=== PATIENT | male | born 1960 | race Caucasian/White ===

== ENCOUNTER 2020-11-06 06:42 | Emergency (ER) | payer OTHER ==
[~2020-11-06] VITALS: Ht 185.4 cm; Wt 106.0 kg
[2020-11-06 06:55] VITALS: BP 143/91
--- NOTE | 2020-11-06 07:23 | PHYS DOC ---
Adult General Chief Complaint Chief Complaint: HAND PROBLEM HPI HPI Patient is a 60-year-old male presenting for right hand infection. This was first noticed 4 days ago, has history of staph infections of skin and reports similar findings on lateral portion of his right fifth knuckle. Patient was able to pop and drain this but states it worsened with development of edema in his hand which concerned him prompting him to visit local urgent care yesterday. Patient has remained afebrile, presented for examination and was subsequently discharged home with new prescription for doxycycline. He has taken x2 doses prior to ER visit today and is concerned due to discussed return precautions that stated if his hand does not get better he will need IV antibiotics. He is here today for evaluation. As mention, he has been afebrile, no other signs or symptoms of systemic disease, no crepitus or streaking up arm, patient does report subjective increase in right hand edema but states his lesion on right lateral hand has been actively draining Review of Systems Review of Systems Fourteen body systems of review of systems have been reviewed. See HPI for pertinent positives and negative responses, other vigil all other systems are negative, non-pertinent or non-contributory Allergies Allergies Allergies Coded Allergies Type Severity Reaction Last Updated Verified No Known Drug Allergies 11/06/20 No Physical Exam Physical Exam Constitutional: Well developed, well nourished, no acute distress, non-toxic appearance. HENT: Normocephalic, atraumatic, bilateral external ears normal, oropharynx moist, no oral exudates, nose normal. Eyes: PERRLA, EOMI, conjunctiva normal, no discharge. Neck: Normal range of motion, no tenderness, supple, no stridor. Cardiovascular: Heart rate regular, sinus rhythm, no murmurs rubs or gallops Lungs & Thorax: Bilateral breath sounds clear to auscultation Abdomen: Bowel sounds normal, soft, no tenderness, no masses, no pulsatile masses. Nonsurgical abdomen, no peritoneal signs Skin: Warm, dry, no erythema, no rash. There is an abscess that is actively draining on the lateral portion of fifth knuckle on dorsal surface, total diameter 2 cm with 4 mm central ulceration that is actively draining purulent malodorous exudate without streaking, crepitus or lymphangitis Back: No tenderness, no CVA tenderness. Extremities: No tenderness, no cyanosis, no clubbing, ROM intact, no edema. Neurologic: Alert and oriented X 3, grossly normal motor & sensory function, no focal deficits noted. Psychologic: Affect normal, judgement normal, mood normal. Current Patient Data Vital Signs Vital Signs Date Time Temp Pulse Resp B/P (MAP) Pulse Ox O2 Delivery O2 Flow Rate FiO2 11/06/20 06:55 97.8 80 18 143/91 (108) 96 Room Air Vital Signs Date Time Temp Pulse Resp B/P (MAP) Pulse Ox O2 Delivery O2 Flow Rate FiO2 11/06/20 06:55 97.8 80 18 143/91 (108) 96 Room Air EKG EKG [] Radiology/Procedures Radiology/Procedures [] Heart Score C/O Chest Pain: No Risk Factors: Risk Factors: DM, Current or recent (<one month) smoker, HTN, HLP, family history of CAD, obesity. Risk Scores: Risk Factors: DM, Current or recent (<one month) smoker, HTN, HLP, family history of CAD, obesity. Course & Med Decision Making Course & Med Decision Making Discussed with the patient all findings. I discussed most likely diagnosis of right hand abscess. Patient has uncertain history of MRSA but is on appropriate antibiotics, doxycycline, for which she is only taken x2 doses. I discussed with patient I do not feel that he is a candidate for IV antibiotics and/or hospital admission as of yet. I discussed utility of incision and drainage but given that patient's abscess is actively draining, joint decision made to defer this. Malodorous drainage cultured while in ER, area cleaned, and circumference of erythema marked with skin marker. I stressed need for close outpatient follow-up to review today's ER visit. Strict return precautions were also discussed at length with good understanding by patient. Patient voiced understanding and agreement with the plan. Patient knows to come back for repeat evaluation if concerning signs or symptoms present prior to outpatient follow- up. Hemodynamically stable, ambulatory and well-appearing at time of disposition. Dragon Disclaimer Dragon Disclaimer This electronic medical record was generated, in whole or in part, using a voice recognition dictation system. Departure Departure: Impression: Primary Impression: Abscess of hand, right Disposition: HOME / SELF CARE / HOMELESS Condition: STABLE Referrals: PCP,UNKNOWN (PCP) Patient Instructions: Abscess, Care After Additional Instructions: You were evaluated in the emergency department for recent abscess that was diagnosed at urgent care. You were appropriately given antibiotics, doxycycline for which you have only taken x2 doses. Please continue this per bottle label and complete as instructed Your vitals and physical exam were nonconcerning for emergent or surgical issues. As disclosed, I do not feel that you are a candidate for IV antibiotics and/or hospital admission as of yet. Incision and drainage was discussed but deferred given area is actively draining. This was cultured today As discussed, it is pertinent that you continue warm soaks, good skin hygiene and continue taking by mouth antibiotics as instructed. The area of redness around your abscess was marked with pen, please monitor this over the upcoming 24 to 48 hours to ensure improvement Return to the Emergency Department if you experience worsening pain, persistent fevers greater than 100.4, an increase in area of redness, increased tenderness/warmth around the abscess, foul smelling discharge from the abscess, or any other concerning symptoms. JEREMIAS DOUGLAS DO November 06, 2020 07:23
== END 2020-11-06 07:30 | disposition home or self-care (01) ==
LOC: ER 06:42
DX: L02.511 Cutaneous abscess of right hand (principal)
CPT/HCPCS: 87070; 99283